=== PATIENT | female | born 1980 | race Caucasian/White ===

== ENCOUNTER → 2024-12-17 10:53 | Outpatient (REF) | payer OTHER, BC, SELFPAY | LOC: MRI 3T 10:53 | PROVIDERS: ATTENDING PHYSICIAN Nurse Practitioner Family | DX: M54.50 Low back pain, unspecified (principal) | CPT/HCPCS: 72148 ==

== ENCOUNTER → 2025-07-06 07:09 | Outpatient (REF) | payer BC, SELFPAY ==
[2025-07-06 07:33] LABS: Urine Character Clear (Clear)
[2025-07-06 07:46] LABS: Hematocrit 40.8 % (37.0-47.0); Hemoglobin 14.0 g/dL (12.0-16.0); Mean Corp Hgb Conc. 34.3 g/dL (33.0-37.0); Mean Corpuscular Volume 85.9 fL (81.0-99.0); Nucleated Red Blood Cells % 0 %; Platelet Count 198 10^3/uL (130-400); Red Cell Dist. Width 12.2 % (11.5-14.5)
[2025-07-06 07:54] LABS: ALT (SGPT) 17 U/L (0-35); AST (SGOT) 22 U/L (14-36); Albumin 4.4 g/dl (3.5-5.0); Alkaline Phosphatase 40 U/L (38-126); Blood Urea Nitrogen 12 mg/dl (7-17); Calcium 8.8 mg/dl (8.4-10.2); Carbon Dioxide 26 mmol/L (22-30); Chloride 108 mmol/L (98-107); Glucose 89 mg/dl (70-99); HDL Cholesterol 74 mg/dl; LDL Cholesterol, Calculated 68 mg/dl; Potassium 3.8 mmol/L (3.5-5.1); Sodium 138 mmol/L (135-145); Total Protein 6.6 g/dl (6.3-8.2); Very Low Density Lipoprotein 15 mg/dl (0-30); eGFR > 60.00
[2025-07-06 08:10] LABS: Urine Squamous Cell 26-30 /LPF (Few)
[2025-07-06 08:25] LABS: TSH 2.43 uIU/ml (0.47-4.68)
== END ==
LOC: REG 07:09
PROVIDERS: ATTENDING PHYSICIAN Family Medicine
DX: E06.3 Autoimmune thyroiditis (principal); M51.26 Other intervertebral disc displacement, lumbar region
CPT/HCPCS: 36415; 80053; 80061; 81003; 81015; 84436; 84443; 85025

== ENCOUNTER → 2025-08-15 13:24 | Outpatient (REF) | payer BC, SELFPAY | LOC: WDC 13:24 | PROVIDERS: ATTENDING PHYSICIAN Family Medicine | DX: Z12.31 Encounter for screening mammogram for malignant neoplasm of breast (principal) | CPT/HCPCS: 77063; 77067 ==

== ENCOUNTER → 2025-08-26 10:19 | Outpatient (REF) | payer BC, SELFPAY | LOC: RAD 10:19 | PROVIDERS: ATTENDING PHYSICIAN Family Medicine | DX: R10.30 Lower abdominal pain, unspecified (principal) | CPT/HCPCS: 76770 ==

== ENCOUNTER → 2025-08-29 08:48 | Outpatient (REF) | payer BC, SELFPAY | LOC: WDC 08:48 | PROVIDERS: ATTENDING PHYSICIAN Family Medicine | DX: R92.8 Other abnormal and inconclusive findings on diagnostic imaging of breast (principal) | CPT/HCPCS: 77065 ==

== ENCOUNTER → 2025-09-14 06:28 | Outpatient (REF) | payer BC, SELFPAY ==
--- NOTE | 2025-09-14 08:52 | OID.BR.INTR ---
[facility] Breast Navigator - Initial
- -
Date of Contact: 09/14/25
Met with patient. Patient given written information on navigator service available at [facility]. Will follow up as needed per protocol.
== END ==
LOC: WDC 06:28
PROVIDERS: ATTENDING PHYSICIAN Family Medicine
DX: R92.1 Mammographic calcification found on diagnostic imaging of breast (principal)
CPT/HCPCS: 19081; 76098; 88305; A4648